=== PATIENT | female | born 1970 | race Caucasian/White ===

== ENCOUNTER 2016-09-10 14:28 | Emergency (ER) | payer OTHER ==
[~2016-09-10] VITALS: Wt 68.2 kg
[2016-09-10] MEDS ORDERED: KETOROLAC 30 MG INJ IM STA (15:57)
[2016-09-10] MEDS ORDERED: ONDANSETRON (ODT) 4 MG TAB ODT STA (15:57)
[2016-09-10] MEDS ORDERED: HYDROmorphONE 1 MG/ML SYG IM STA (15:57)
[2016-09-10] MEDS ORDERED: DICL50TA11 PO (16:15)
[2016-09-10] MEDS ORDERED: HYDR-906 PO (16:15)
[2016-09-10 16:34] VITALS: BP 118/78; PULSE 72; RESP 16; TEMP 98.1
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
== END 2016-09-10 16:42 | disposition home or self-care (01) ==
LOC: FTE 14:28
DX: G44.031 Episodic paroxysmal hemicrania, intractable (principal)
CPT/HCPCS: J1170; J1885; Z7610; 96372